=== PATIENT | female | born 1930 | race Caucasian/White ===

== ENCOUNTER 2017-07-14 19:03 | Emergency (ER) | payer MEDICARE, MEDICAID ==
[2017-07-14] MEDS ORDERED: Pantoprazole 40 MG VIAL ONE (19:16)
[2017-07-14] MEDS ORDERED: Sodium Chloride 0.9% 0 ML ONE (19:31)
[2017-07-14 19:52] LABS: #Basophils 0.1 thou/uL (0.0-0.2); #Lymphocytes 1.6 thou/uL (1.20-3.40); #Monocytes 0.4 thou/uL (0.11-0.59); #Neutrophils 6.2 thou/uL (1.40-6.50); %Basophils 0.9 % (0.0-1.0); %Eosinophils 0.4 % (0.0-10.0); %Lymphocytes 19.4 % (21.0-51.0); %Monocytes 4.5 % (0.0-10.0); %Neutrophils 74.7 % (42.0-75.0); Hemoglobin 16.2 g/dL (12.0-16.0); Mean Corpuscular HGB CONC 32.6 g/dL (32.0-36.0); Mean Corpuscular Hemoglobin 32.1 pg (27.0-31.0); Mean Corpuscular Volume 98.5 fl (81.0-99.0); Mean Platelet Volume 8.4 fL (7.4-10.4); Platelet Count 250 thou/uL (130-400); RBC Distribution Width 11.6 % (11.5-14.5); Red Blood Cell (RBC) Count 5.06 mill/uL (4.20-5.40); White Blood Cell (WBC) Count 8.3 thou/uL (4.8-10.8)
[2017-07-14 19:55] LABS: ALT (SGPT) 23 U/L (8-55); AST (SGOT) 23 U/L (5-34); Albumin 3.9 g/dL (3.4-4.8); Alkaline Phosphatase 141 U/L (40-150); Anion Gap 18 mmol/L (10-20); BUN (Urea Nitrogen) 14 mg/dL (9.8-20.1); Bilirubin, Total 0.4 mg/dL (0.2-1.2); Calc. Creatinine Clearance 0 mL/min (70-130); Calcium 9.4 mg/dL (7.8-10.44); Carbon Dioxide 27 mmol/L (23-31); Chloride 103 mmol/L (98-107); Estimated GFR-MDRD 86; Globulin 3.4 g/dL (2.4-3.5); Glucose 125 mg/dL (83-110); Potassium 4.6 mmol/L (3.5-5.1); Protein, Total 7.3 g/dL (6.0-8.3); Sodium 143 mmol/L (136-145)
[2017-07-14] MEDS ORDERED: Sodium Chloride 0.9% 10 ML ONE (20:00)
[2017-07-14] MEDS ORDERED: Ondansetron HCl/PF 4 MG/2 ML Vial ONE (20:34)
== END 2017-07-14 23:00 ==
LOC: BURERS 19:03
DX: R11.2 Nausea with vomiting, unspecified (principal); G47.30 Sleep apnea, unspecified; E03.9 Hypothyroidism, unspecified; F03.90 Unspecified dementia, unspecified severity, without behavioral disturbance, psychotic disturbance, mood disturbance, and anxiety; I11.0 Hypertensive heart disease with heart failure; I50.9 Heart failure, unspecified; D64.9 Anemia, unspecified; K21.9 Gastro-esophageal reflux disease without esophagitis; G62.9 Polyneuropathy, unspecified; Z79.899 Other long term (current) drug therapy; Z79.82 Long term (current) use of aspirin
CPT/HCPCS: 80053; 82271; 82274; 85025; 96361; 96374; 96375; A4216; C9113; J2405; J7050

== ENCOUNTER 2018-10-09 19:45 | Emergency (ER) | payer MEDICARE ==
[2018-10-09 20:37] LABS: Clarity Hazy (Clear); Leukocyte Negative (Negative); Nitrite Negative (Negative); Specific Gravity, Urine 1.025 (1.005-1.030)
[2018-10-09 20:38] LABS: Bilirubin Negative (Negative); Blood, Urine Negative (Negative); Glucose, Urine (Dipstick) Negative (Negative); Protein, Urine (Dipstick) Trace mg/dL (Neg-Trace); Urobilinogen 0.2 mg/dL (0.2-1.0)
--- NOTE | 2018-10-09 20:49 | CT ---
CT BRAIN WITHOUT CONTRAST: HISTORY: Head injury. FINDINGS: There is marked bilateral atrophy and chronic white matter ischemic change. Some minimal encephaloma lacic change in the right posterior occipital lobe, evidence for old infarct change. There is some c hronic white matter ischemic change noted bilaterally. There is no focal mass or midline shift. No intraaxial or extraaxial hemorrhage. Left mastoid sinus partial opacification with some ethmoid sinu s mucosal congestion. There is noted to be abnormally dilated and somewhat tortuous superior ophthal scottie veins bilaterally, which is a nonspecific finding. The visualized orbits are otherwise unremarka ble. IMPRESSION: 1. No mass, bleed, or other significant acute intracranial process. 2. Atrophy and chronic white matter ischemic change. 3. 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 4. Abnormally dilated superior ophthalmic veins bilaterally, which is a nonspecific finding. Depending on symptoms, consider nonemergent follow-up brain/orbit MRI for further assessment in this regard. POS: EMILIANA
== END 2018-10-09 22:22 | disposition home or self-care (01) ==
LOC: BURERS 19:45
DX: S00.03XA Contusion of scalp, initial encounter (principal); D64.9 Anemia, unspecified; K21.9 Gastro-esophageal reflux disease without esophagitis; F03.90 Unspecified dementia, unspecified severity, without behavioral disturbance, psychotic disturbance, mood disturbance, and anxiety; I11.0 Hypertensive heart disease with heart failure; I50.9 Heart failure, unspecified; E03.9 Hypothyroidism, unspecified; G47.00 Insomnia, unspecified; F41.9 Anxiety disorder, unspecified; F32.9 Major depressive disorder, single episode, unspecified; E11.40 Type 2 diabetes mellitus with diabetic neuropathy, unspecified; E11.65 Type 2 diabetes mellitus with hyperglycemia; W17.89XA Other fall from one level to another, initial encounter
CPT/HCPCS: 51701; 70450; 81003; 87086; A4353